=== PATIENT | male | born 1970 ===

== ENCOUNTER 2023-12-24 15:14 | Emergency (ER) | payer OTHER ==
[~2023-12-24] VITALS: Ht 177.8 cm; Wt 110.0 kg
[2023-12-24 16:04] VITALS: BP 153/89; PULSE 82; RESP 16; TEMP 97.6
== END 2023-12-24 17:14 | disposition left against medical advice (07) ==
LOC: EMS 15:14
DX: Z48.00 Encounter for change or removal of nonsurgical wound dressing (principal)
CPT/HCPCS: 99281; Z7502